=== PATIENT | female | born 1960 | race Two or more races ===

== ENCOUNTER 2019-09-02 10:59 | Outpatient (CLI) | payer OTHER | END 2019-09-02 11:01 | disposition home or self-care (01) | LOC: NUCLEAR 10:59 | DX: I42.2 Other hypertrophic cardiomyopathy (principal); I47.1 Supraventricular tachycardia ==

== ENCOUNTER → 2022-05-25 | Outpatient (CLI) | payer OTHER | END | disposition home or self-care (01) | LOC: NUCLEAR 10:00 | PROVIDERS: ATTEND Internal Medicine | DX: E85.9 Amyloidosis, unspecified (principal) ==